=== PATIENT | female | born 1985 | race Hispanic/Latino ===

== ENCOUNTER 2021-08-16 14:18 | Outpatient (CLI) | payer OTHER | END 2021-08-16 14:19 | disposition home or self-care (01) | LOC: NAV RAD 14:18 | PROVIDERS: ATTEND Family Medicine | DX: M51.36 Other intervertebral disc degeneration, lumbar region (principal); M47.816 Spondylosis without myelopathy or radiculopathy, lumbar region | CPT/HCPCS: 72100 ==